=== PATIENT | female | born 1960 | race Caucasian/White ===

== ENCOUNTER → 2020-01-04 14:00 | Outpatient (BNVA) | payer OTHER, SELFPAY | PROVIDERS: Visit Provider Physician Assistant | DX: M75.81 Other shoulder lesions, right shoulder (principal) | CPT/HCPCS: 99212 ==

== ENCOUNTER → 2020-04-10 10:58 | Outpatient (BNVA) | payer OTHER, SELFPAY | PROVIDERS: PCP Internal Medicine; Visit Provider Nurse Practitioner | DX: Z76.89 Persons encountering health services in other specified circumstances (principal) | CPT/HCPCS: Q3014 ==

== ENCOUNTER → 2020-06-14 13:53 | Outpatient (BNVA) | payer OTHER, SELFPAY | PROVIDERS: PCP Internal Medicine; Visit Provider Nurse Practitioner | DX: K21.9 Gastro-esophageal reflux disease without esophagitis (principal); R11.0 Nausea; R06.6 Hiccough; Z80.0 Family history of malignant neoplasm of digestive organs; Z79.899 Other long term (current) drug therapy | CPT/HCPCS: 99212 ==

== ENCOUNTER → 2020-07-02 08:28 | Outpatient (BNVA) | payer OTHER, SELFPAY | PROVIDERS: PCP Internal Medicine; Visit Provider Nurse Practitioner | DX: Z13.89 Encounter for screening for other disorder (principal) | CPT/HCPCS: Q3014 ==

== ENCOUNTER 2020-10-03 08:32 | Outpatient (REF) | payer OTHER, SELFPAY ==
[2020-10-03 08:57] LABS: MANUAL DIFF FLAG NO
[2020-10-03 08:59] LABS: White Blood Count 6.3 X10*3/uL (4.8-10.8)
[2020-10-03 09:00] LABS: Basophils Absolute Auto 0.1 X10*3/uL (0.0-0.2); Basophils Percent Auto 0.8 % (0-2); Eosinophils Absolute Auto 0.4 X10*3/uL (0.0-0.4); Eosinophils Percent Auto 6.2 % (0-4); Hematocrit 35.6 % (37-47); Hemoglobin 11.1 g/dl (12.0-16.0); Imm Gran Abs Auto 0.01 X10*3/uL (0.00-0.03); Imm Gran Pct Auto 0.2 % (0.0-0.4); Lymphocytes Absolute Auto 2.4 X10*3/uL (1.2-4.9); Lymphocytes Percent Auto 38.3 % (20-40); Mean Corpuscular HGB Conc 31.2 g/dl (31.0-35.0); Mean Corpuscular Hemoglobin 25.7 pg (27.0-33.0); Mean Corpuscular Volume 82.4 fL (80-98); Mean Platelet Volume 9.5 fL (9.4-12.3); Monocytes Absolute Auto 0.6 X10*3/uL (0.1-1.2); Monocytes Percent Auto 9.4 % (2-11); Neutrophils Absolute Auto 2.8 X10*3/uL (2.0-8.3); Neutrophils Percent Auto 45.1 % (45-73); Platelet Count 358 X10*3/uL (160-400); Red Blood Count 4.32 X10*6/uL (4.20-5.50); Red Cell Distribution Width 16.4 % (11.0-16.0)
[2020-10-03 09:32] LABS: Alanine Aminotransferase 35 U/L (0-31); Albumin Level 4.1 g/dL (3.5-5.0); Alkaline Phosphatase 87 U/L (39-117); Anion Gap 11 (12-20); Aspartate Amino Transferase 32 U/L (5-31); Bilirubin Total 0.4 mg/dL (0.0-1.0); Blood Urea Nitrogen 16 mg/dL (9-16); Calcium 9.3 mg/dL (8.4-10.2); Carbon Dioxide 28 mmol/L (22-29); Chloride 106 mmol/L (96-108); Estimated Glomerular Filt Rate > 60; Glucose Random 96 mg/dL (60-115); Potassium 4.8 mmol/L (3.3-5.1); Sodium 140 mmol/L (135-145); Total Protein 6.4 g/dL (6.5-8.0)
[2020-10-03 09:54] LABS: Vitamin D 25-OH Total 27.5 ng/mL (>30)
== END 2020-10-03 08:33 | disposition home or self-care (01) ==
LOC: HO.LAB 08:32
PROVIDERS: PCP Internal Medicine; Visit Provider Nurse Practitioner
DX: Z12.11 Encounter for screening for malignant neoplasm of colon (principal); R06.6 Hiccough
CPT/HCPCS: 36415; 80053; 82306; 85025

== ENCOUNTER 2020-10-15 10:24 | Day surgery (SDC) | payer OTHER, SELFPAY ==
--- NOTE | 2020-10-14 10:31 | P.CONAN_ITS ---
Documented by User: Soha Marin NP 10/14/20 10:32 HPI - Anesthesia Eval Consult details Narrative: 59yo F for Colonoscopy PMFSH Active Problems Active Problems: All Active Problems (Updated 06/14/20 @ 14:50 by MIKY Hernandez) Family history of colon cancer (Acute) Colon cancer screening (Acute) Nausea (Acute) Hiccups (Acute) GERD (gastroesophageal reflux disease) (Acute) Rotator cuff tendonitis (Acute) Right shoulder pain (Acute) Past Medical History Medical History GERD (gastroesophageal reflux disease) Rotator cuff tendonitis Family History Family History Father Afib Diabetes Family history of breast cancer Family history of liver cancer Family history of heart disease Pacemaker Mother Blind Family history of breast cancer Family history of liver cancer Sister Afib Brother Afib Maternal Grandmother Stomach cancer Surgical History Surgical History History of esophagogastroduodenoscopy (EGD) History of fusion of cervical spine History of repair of hiatal hernia History of total right knee replacement (~11/29/18) Hx of colonoscopy Social History Social History (Updated 07/02/20 @ 08:31 by Raquel Rosenberg CMA) Household Members: Significant Other Alcohol intake: never Patient Tobacco Use Status: Current everyday Tobacco user Cigarette Packs Per Day: 1 Cigarettes Per Day: 10 Use of substances other than those prescribed or required for medical reasons: Yes Substance Use Type Other:: CBD, THC GUMMIES Substance Use Frequency: Weekly Are you DNR?: No Advance Directives: No Advance Directives Information Provided: Yes Current occupational status: disabled Current occupation: Right Handed Meds Allergies Allergy/AdvReac Type Severity Reaction Status Date / Time gabapentin [GABAPENTIN] Allergy Unknown VOMITING Verified 10/15/20 11:01 BLOOD, nausea and vomiting lamotrigine [From LAMICTAL] AdvReac Intermediate DIFFICULTY Verified 10/15/20 11:01 BREATHING ENVIRONMENTAL Allergy Unknown CONGESTION, Uncoded 07/02/20 08:29 PATTEN, FATIGUE Home Medications Medication Instructions Recorded Confirmed Last Taken Type celecoxib 400 mg capsule (Celebrex) 400 mg PO DAILY 01/04/20 Unknown History estradiol 10 mcg vaginal tablet 10 mcg VAGINAL 2XW 02/17/21 Unknown History fluoxetine 40 mg capsule 40 mg PO DAILY 04/10/20 10/15/20 08:30 History ibuprofen 800 mg tablet 800 mg PO Q8H PRN 04/10/20 Unknown History loratadine 10 mg tablet (Claritin) 10 mg PO DAILY 06/14/20 Unknown History Exam Exam Date and Time: October 14, 2020 1031 Pertinent Lab Results Pertinent Lab Results: Laboratory Tests 10/03/20 10/03/20 08:36 08:36 WBC 6.3 Hgb 11.1 L Hct 35.6 L Plt Count 358 Sodium 140 Potassium 4.8 Chloride 106 Carbon Dioxide 28 BUN 16 Creatinine 0.80 Documented by User: Evans Mulligan MD 10/15/20 11:05 [facility] Past Medical History Medical History GERD (gastroesophageal reflux disease) Rotator cuff tendonitis Family History Family History (Reviewed 07/02/20 @ 08:30 by Raquel Rosenberg [facility]) Father Afib Diabetes Family history of breast cancer Family history of liver cancer Family history of heart disease Pacemaker Mother Blind Family history of breast cancer Family history of liver cancer Sister Afib Brother Afib Maternal Grandmother Stomach cancer Family history of problems with anesthesia: No Surgical History Surgical History History of esophagogastroduodenoscopy (EGD) History of fusion of cervical spine History of repair of hiatal hernia History of total right knee replacement (~11/29/18) Hx of colonoscopy History of Problems with Anesthesia: No Social History Social History (Updated 07/02/20 @ 08:31 by Raquel Rosenberg [facility]) Household Members: Significant Other Alcohol intake: never Patient Tobacco Use Status: Current everyday Tobacco user Cigarette Packs Per Day: 1 Cigarettes Per Day: 10 Use of substances other than those prescribed or required for medical reasons: Yes Substance Use Type Other:: CBD, THC GUMMIES Substance Use Frequency: Weekly Are you DNR?: No Advance Directives: No Advance Directives Information Provided: Yes Current occupational status: disabled Current occupation: Right Handed Meds Allergies Allergy/AdvReac Type Severity Reaction Status Date / Time gabapentin [GABAPENTIN] Allergy Unknown VOMITING Verified 10/15/20 11:01 BLOOD, nausea and vomiting lamotrigine [From LAMICTAL] AdvReac Intermediate DIFFICULTY Verified 10/15/20 11:01 BREATHING ENVIRONMENTAL Allergy Unknown CONGESTION, Uncoded 07/02/20 08:29 PATTEN, FATIGUE Home Medications Medication Instructions Recorded Confirmed Last Taken Type celecoxib 400 mg capsule (Celebrex) 400 mg PO DAILY 01/04/20 Unknown History estradiol 10 mcg vaginal tablet 10 mcg VAGINAL 2XW 04/10/20 Unknown History fluoxetine 40 mg capsule 40 mg PO DAILY 04/10/20 10/15/20 08:30 History ibuprofen 800 mg tablet 800 mg PO Q8H PRN 04/10/20 Unknown History loratadine 10 mg tablet (Claritin) 10 mg PO DAILY 06/14/20 Unknown History Exam Airway Mallampati Class: II TM Dist: >3cm Neck ROM: Full Loose/Missing/Broken Teeth: No Heart: RRR Assessment and Plan Assessment Anesthesia Assessment: Anesthesia Plan Discussed and Chart Reviewed Final Anesthetic Review Family History of Problems with Anesthesia: No History of Problems with Anesthesia: No NPO: Yes ASA Class: III Final Preanesthetic Review: No Changes in Pt Med Stat, Meds/Allgs Chart Reviewed, Consent Obtained/Reviewed and Anes Risks/Benef Reviewed Patient Risk: Intermediate Procedure Risk: Low Anesthetic Plan Anesthetic Plan: MAC: Disposition: Standard PACU
[2020-10-15 10:32] VITALS: BMI 37.4
[2020-10-15 10:52] VITALS: BP 124/86; PULSE 75; RESP 16; TEMP 36.2; O2SAT 95
[2020-10-15] MEDS: Lactated Ringers 1,000 ML 100 ML IVCONT (10:59)
--- NOTE | 2020-10-15 11:04 | MHC.SHP ---
Pre-Procedural Eval Section A Date of Service: 10/15/20 The patient is an INPATIENT: No The History & Physical has been completed within 30 days and I have reviewed it.: No Section B Chief Complaint: Screening Relevant Family History (Specify if Yes): Yes Present Medications: see Short Stay Collaborative assessment Medical History: Significant History (GERD, hiccups) History of Previous Operations: Relevant previous surgery/procedure and date(s) (History of esophagogastroduodenoscopy (EGD) History of fusion of cervical spine History of total right knee replacement (~11/29/18) Hx of colonoscopy) Allergies: Allergies Allergy/AdvReac Type Severity Reaction Status Date / Time gabapentin [GABAPENTIN] Allergy Unknown VOMITING Verified 10/15/20 11:01 BLOOD, nausea and vomiting lamotrigine [From LAMICTAL] AdvReac Intermediate DIFFICULTY Verified 10/15/20 11:01 BREATHING ENVIRONMENTAL Allergy Unknown CONGESTION, Uncoded 07/02/20 08:29 PATTEN, FATIGUE Review of Systems Sugical H&P ROS: Negative: Constitution, Cardiovascular, Respiratory and Gastrointestinal Exam Surgical H&P Exam: Normal: Heart, Normal: Lungs, Normal: Extremities and Normal: Abdomen Plan Diagnosis/Plan: Unchanged I have reviewed the history and physical and performed a pertinent physical examination on my patient. No changes have occurred unless specified.
--- NOTE | 2020-10-15 11:11 | P.BOP_ITS ---
Brief Operative Note Date of Service: 10/15/20 Pre-op diagnosis: Colon cancer screening Post-op diagnosis: other (Colon polyps, diverticulosis) Procedure: COLONOSCOPY TILL CECUM WITH BIOPSIES AND SNARE POLYPECTOMY Consent: Indications for the procedure and potential complications of bleeding, perforation, reaction to medications and missed diagnosis were discussed with the patient and informed consent was obtained. Instrument: Olympus PCF H 190 L variable stiffness pediatric colonoscope Monitoring: Vital signs and clinical assessment, intermittent blood pressure monitoring, continuous EKG monitoring, Pulse oximetry and Carbon Dioxide monitoring were done throughout the procedure. Colon withdrawl time was 13 minutes. Procedure: The patient was placed in the left lateral decubitis position and pre-procedure medications were administered. After a digital rectal examination of the ano-rectum, the video colonoscope was inserted into the rectum and advanced through the colon to the cecum. The colonoscope was slowly withdrawn in a retrograde panoramic fashion and the colon mucosa was carefully examined including a retroflexed view of the rectum. Findings and interventions are described below. Procedure Difficulty: Colon long tortuous was some loop formation. Patient was placed the supine position with the application of LLQ pressure to intubate ascending Findings: Terminal Ileum: Not evaluated Cecum: Normal Ascending Colon: A 6-7 mm sessile polyp removed with cold biopsy Transverse Colon: A 15 mm sessile polyp removed with a hot snare Descending Colon: Moderate diverticulosis Sigmoid Colon: Severe diverticulosis with luminal narrowing Rectum: Normal Ano-rectum: Normal Colon preparation: Excellent Impression and Post Procedure Diagnosis: Colonoscopy Findings: Two small to medium sized polyps removed Moderate to severe diverticulosis seen in the left colon Plan: Await pathology results Patient has an appointment on 10/31/20 in the GI Clinic with Maggie Ogden NP . Repeat Colonoscopy interval based on path results - in 3-5 years if polyps are adenomatous and 10 years if polyps are hyperplastic. Above findings were reviewed with the patient and colon polyps and diverticulosis handouts were given in the discharge area Surgeon: Dale Sims MD Anesthesia: MAC (Sharyn Hardwick CRNA) Was an Director Of Land Acquisition used for this Procedure?: Yes Director Of Land Acquisition: Zuri Huynh Estimated blood loss (mL): 0 Pathology: other (a. transverse colon polyp b. Ascending colon polyp) Condition: stable Disposition: PACU
[2020-10-15 11:52] VITALS: BP 95/69; PULSE 76; RESP 16; TEMP 36.2; O2SAT 98
[2020-10-15 12:07] VITALS: BP 111/77; PULSE 76; RESP 16; TEMP 36.2; O2SAT 98
--- NOTE | 2020-10-15 18:27 | P.OP_ITS ---
Operative Note Operative Note Date of Service: 10/15/20 Narrative: Pre-op diagnosis:?Colon cancer screening Post-op diagnosis:?other (Colon polyps, diverticulosis) Procedure:? COLONOSCOPY TILL CECUM WITH BIOPSIES AND SNARE POLYPECTOMY Consent: Indications for the procedure and potential complications of bleeding, perforation, reaction to medications and missed diagnosis were discussed with the patient and informed consent was obtained. Instrument: Olympus PCF H 190 L variable stiffness pediatric colonoscope Monitoring: Vital signs and clinical assessment, intermittent blood pressure monitoring, continuous EKG monitoring, Pulse oximetry and Carbon Dioxide monitoring were done throughout the procedure. Colon withdrawl time was 13 minutes. Procedure: The patient was placed in the left lateral decubitis position and pre-procedure medications were administered. After a digital rectal examination of the ano-rectum, the video colonoscope was inserted into the rectum and advanced through the colon to the cecum. The colonoscope was slowly withdrawn in a retrograde panoramic fashion and the colon mucosa was carefully examined including a retroflexed view of the rectum. Findings and interventions are described below. Procedure Difficulty:? Colon long tortuous was some loop formation.? Patient was placed the supine position with the application of LLQ pressure to intubate ascending Findings: Terminal Ileum: Not evaluated Cecum:? Normal Ascending Colon:? A 6-7 mm sessile polyp removed with cold biopsy Transverse Colon:? A 15 mm sessile polyp removed with a hot snare Descending Colon:? Moderate diverticulosis Sigmoid Colon:? Severe diverticulosis with luminal narrowing Rectum:? Normal Ano-rectum:? Normal Colon preparation: Excellent ? Impression and Post Procedure Diagnosis: Colonoscopy Findings: Two small to medium sized polyps removed Moderate to severe diverticulosis seen in the left colon Plan: Await pathology results Patient has an appointment on 10/31/20 in the GI Clinic with? Maggie Ogden NP . Repeat Colonoscopy interval based on path results - in 3-5 years if polyps are adenomatous and 10 years if polyps are hyperplastic. Above findings were reviewed with the patient and colon polyps and diverticulosis handouts were given in the discharge area Surgeon:?Dale Sims MD Anesthesia:?TARIQ (Sharyn Hardwick CRNA) Was an Public Health Nutritionist used for this Procedure?:?Yes Public Health Nutritionist:?Zuri Huynh Estimated blood loss (mL):?0 Pathology:?other (a. transverse colon polyp? b. Ascending colon polyp) Condition:?stable Disposition:?PACU
== END 2020-10-15 12:31 ==
LOC: HO.SSS 10:25
PROVIDERS: PCP Internal Medicine; Visit Provider Internal Medicine Gastroenterology
PROC: 0DJD8ZZ Inspection of Lower Intestinal Tract, Via Natural or Artificial Opening Endoscopic (ICD-10-PCS; CPT 45378; principal; 2020-10-15 11:30)
DX: Z12.11 Encounter for screening for malignant neoplasm of colon (principal); D12.2 Benign neoplasm of ascending colon; D12.3 Benign neoplasm of transverse colon; K57.30 Diverticulosis of large intestine without perforation or abscess without bleeding; K21.9 Gastro-esophageal reflux disease without esophagitis; Z79.899 Other long term (current) drug therapy; Z88.8 Allergy status to other drugs, medicaments and biological substances; F17.210 Nicotine dependence, cigarettes, uncomplicated
CPT/HCPCS: 45385; 45380; 88305

== ENCOUNTER → 2020-10-31 09:37 | Outpatient (BNVA) | payer OTHER, SELFPAY | PROVIDERS: PCP Internal Medicine; Visit Provider Nurse Practitioner | DX: Z13.89 Encounter for screening for other disorder (principal) | CPT/HCPCS: Q3014 ==

== ENCOUNTER → 2021-05-01 09:05 | Outpatient (BNVA) | payer OTHER, SELFPAY | PROVIDERS: PCP Internal Medicine; Referring Provider Internal Medicine; Visit Provider Nurse Practitioner | DX: K21.9 Gastro-esophageal reflux disease without esophagitis (principal); R11.0 Nausea; Z79.899 Other long term (current) drug therapy; Z80.0 Family history of malignant neoplasm of digestive organs | CPT/HCPCS: 99212 ==

== ENCOUNTER → 2021-07-31 14:29 | Outpatient (BNVA) | payer OTHER, SELFPAY | PROVIDERS: PCP Internal Medicine; Visit Provider Nurse Practitioner | DX: K21.9 Gastro-esophageal reflux disease without esophagitis (principal); R11.0 Nausea; D64.9 Anemia, unspecified; Z79.899 Other long term (current) drug therapy; Z80.0 Family history of malignant neoplasm of digestive organs | CPT/HCPCS: 99212 ==

== ENCOUNTER 2021-08-07 09:32 | Outpatient (REF) | payer OTHER, SELFPAY ==
[2021-08-07 10:31] LABS: FIT1 NEGATIVE (NEGATIVE)
[2021-08-07 10:32] LABS: FIT Int Ctl YES; FIT2 NEGATIVE (NEGATIVE)
== END 2021-08-07 09:33 | disposition home or self-care (01) ==
LOC: HO.LNP 09:32
PROVIDERS: Visit Provider Nurse Practitioner
DX: D64.9 Anemia, unspecified (principal)
CPT/HCPCS: 82274

== ENCOUNTER → 2021-09-11 08:30 | Outpatient (BNVA) | payer OTHER, SELFPAY | PROVIDERS: PCP Internal Medicine; Visit Provider Nurse Practitioner | DX: D64.9 Anemia, unspecified (principal); K21.9 Gastro-esophageal reflux disease without esophagitis | CPT/HCPCS: 99212 ==

== ENCOUNTER → 2022-08-27 15:46 | Outpatient (BNVA) | payer OTHER, SELFPAY | PROVIDERS: Visit Provider Nurse Practitioner | DX: Z01.818 Encounter for other preprocedural examination (principal); K21.9 Gastro-esophageal reflux disease without esophagitis; R11.0 Nausea; Z80.0 Family history of malignant neoplasm of digestive organs; Z79.899 Other long term (current) drug therapy | CPT/HCPCS: 99212 ==

== ENCOUNTER 2022-09-05 09:11 | Outpatient (REF) | payer OTHER, SELFPAY ==
[2022-09-05 09:22] LABS: MANUAL DIFF FLAG NO
[2022-09-05 09:33] LABS: Basophils Absolute Auto 0.1 X10*3/uL (0.0-0.2); Basophils Percent Auto 0.7 % (0-2); Eosinophils Absolute Auto 0.2 X10*3/uL (0.0-0.4); Eosinophils Percent Auto 3.4 % (0-4); Hematocrit 41.8 % (37.0-47.0); Hemoglobin 13.3 g/dl (12.0-16.0); Imm Gran Abs Auto 0.01 X10*3/uL (0.00-0.03); Imm Gran Pct Auto 0.1 % (0.0-0.4); Lymphocytes Absolute Auto 2.3 X10*3/uL (1.2-4.9); Mean Corpuscular HGB Conc 31.8 g/dl (31.0-35.0); Mean Corpuscular Hemoglobin 29.6 pg (27.0-33.0); Mean Corpuscular Volume 93.1 fL (80.0-98.0); Mean Platelet Volume 9.7 fL (9.4-12.3); Monocytes Absolute Auto 0.6 X10*3/uL (0.1-1.2); Monocytes Percent Auto 8.1 % (2-11); Neutrophils Absolute Auto 3.7 x10*3/uL (2.0-8.3); Neutrophils Percent Auto 53.7 % (45-73); Platelet Count 312 X10*3/uL (160-400); Red Blood Count 4.49 X10*6/uL (4.20-5.50); Red Cell Distribution Width 12.8 % (11.0-16.0); White Blood Count 6.8 X10*3/uL (4.8-10.8)
[2022-09-05 10:17] LABS: Alanine Aminotransferase 23 U/L (0-31); Albumin Level 4.3 g/dL (3.5-5.0); Alkaline Phosphatase 85 U/L (39-117); Anion Gap 12 (12-20); Aspartate Amino Transferase 22 U/L (5-31); Bilirubin Total 0.4 mg/dL (0.0-1.0); Blood Urea Nitrogen 19 mg/dL (9-16); Calcium 9.4 mg/dL (8.4-10.2); Carbon Dioxide 23 mmol/L (22-29); Chloride 107 mmol/L (96-108); Estimated Glomerular Filt Rate > 60; Glucose Random 82 mg/dL (60-115); Potassium 4.1 mmol/L (3.3-5.1); Sodium 138 mmol/L (135-145); Total Protein 6.8 g/dL (6.5-8.0)
== END 2022-09-05 09:12 | disposition home or self-care (01) ==
LOC: HO.LAB 09:11
PROVIDERS: Nurse Practitioner; PCP Internal Medicine; Visit Provider Midwife
DX: Z80.0 Family history of malignant neoplasm of digestive organs (principal)
CPT/HCPCS: 36415; 80053; 85025

== ENCOUNTER 2022-12-02 08:16 | Outpatient (REF) | payer OTHER, SELFPAY | END 2022-12-02 08:17 | disposition home or self-care (01) | LOC: HO.XRAY 08:16 | PROVIDERS: PCP Internal Medicine; Visit Provider Nurse Practitioner | DX: Z13.89 Encounter for screening for other disorder (principal); Z80.0 Family history of malignant neoplasm of digestive organs | CPT/HCPCS: 74220 ==

== ENCOUNTER → 2022-12-02 08:20 | Outpatient (BNV) | payer OTHER, SELFPAY | PROVIDERS: PCP Internal Medicine; Visit Provider Radiology Diagnostic Radiology | DX: Z80.0 Family history of malignant neoplasm of digestive organs (principal) | CPT/HCPCS: 74221 ==

== ENCOUNTER 2023-04-02 09:02 | Day surgery (SDC) | payer OTHER, SELFPAY ==
--- NOTE | 2023-04-01 11:56 | HO.ANESPROP2 ---
HPI - Anesthesia Eval Consult details Narrative: 62yo F for Colonoscopy PMFSH Active Problems Active Problems: All Active Problems (Updated 08/27/22 @ 16:27 by MIKY Hernandez) Pre-op examination (Acute) Anemia (Acute) Right shoulder pain (Acute) Hiccups (Acute) Nausea (Acute) Colon cancer screening (Acute) Family history of colon cancer (Acute) GERD (gastroesophageal reflux disease) (Acute) Past Medical History Medical History GERD (gastroesophageal reflux disease) Rotator cuff tendonitis Family History Family History Father Afib Diabetes Family history of breast cancer Family history of liver cancer Family history of heart disease Pacemaker Mother Blind Family history of breast cancer Family history of liver cancer Sister Afib Brother Afib Maternal Grandmother Stomach cancer Family history of problems with anesthesia: No Surgical History Surgical History History of esophagogastroduodenoscopy (EGD) History of fusion of cervical spine History of repair of hiatal hernia History of total right knee replacement (~11/29/18) Hx of colonoscopy Hx of total knee replacement History of Problems with Anesthesia: No Social History Social History Household Members: Significant Other Alcohol intake: never Patient Tobacco Use Status: Current everyday Tobacco user Cigarette Packs Per Day: 1 Cigarettes Per Day: 10 Current occupational status: disabled Current occupation: Right Handed Meds Allergies Allergy/AdvReac Type Severity Reaction Status Date / Time gabapentin [GABAPENTIN] Allergy Unknown VOMITING Verified 08/27/22 15:55 BLOOD, nausea and vomiting lamotrigine [From LAMICTAL] AdvReac Intermediate DIFFICULTY Verified 08/27/22 15:55 BREATHING ENVIRONMENTAL Allergy Unknown CONGESTION, Uncoded 09/11/21 08:34 PATTEN, FATIGUE Home Medications Medication Instructions Recorded Confirmed Last Taken Type loratadine 10 mg tablet (Claritin) 10 mg PO DAILY 06/14/20 Unknown History azelastine 137 mcg (0.1 %) nasal 2 spray intranasal BID 07/31/21 Unknown History spray aerosol estradiol 10 mcg vaginal tablet 20 mcg vaginal 2XW 09/11/21 Unknown History trazodone 50 mg tablet 25 mg PO 09/11/21 Unknown History baclofen 10 mg tablet 10 mg PO TID 08/27/22 Unknown History methocarbamol 750 mg tablet 750 mg PO TID PRN 08/27/22 Unknown History sertraline 50 mg tablet 50 mg PO DAILY 08/27/22 Unknown History Assessment and Plan Assessment Anesthesia Assessment: Chart Reviewed Final Anesthetic Review Family History of Problems with Anesthesia: No History of Problems with Anesthesia: No
--- NOTE | 2023-04-02 09:32 | HO.ANESPROP2 ---
[facility] Active Problems Active Problems: All Active Problems (Updated 08/27/22 @ 16:27 by MIKY Hernandez) Pre-op examination (Acute) Anemia (Acute) Right shoulder pain (Acute) Hiccups (Acute) Nausea (Acute) Colon cancer screening (Acute) Family history of colon cancer (Acute) GERD (gastroesophageal reflux disease) (Acute) Past Medical History Medical History GERD (gastroesophageal reflux disease) Rotator cuff tendonitis Family History Family History Father Afib Diabetes Family history of breast cancer Family history of liver cancer Family history of heart disease Pacemaker Mother Blind Family history of breast cancer Family history of liver cancer Sister Afib Brother Afib Maternal Grandmother Stomach cancer Family history of problems with anesthesia: No Surgical History Surgical History Hx of total knee replacement History of repair of hiatal hernia History of esophagogastroduodenoscopy (EGD) Hx of colonoscopy History of fusion of cervical spine History of total right knee replacement (~11/29/18) History of Problems with Anesthesia: No Social History Social History Household Members: Significant Other Alcohol intake: never Patient Tobacco Use Status: Current everyday Tobacco user Tobacco use type: Cigarette Cigarette Packs Per Day: 1 Cigarettes Per Day: 20.0 Current occupational status: disabled Current occupation: Right Handed Meds Allergies Allergy/AdvReac Type Severity Reaction Status Date / Time gabapentin [GABAPENTIN] Allergy Unknown VOMITING Verified 08/27/22 15:55 BLOOD, nausea and vomiting lamotrigine [From LAMICTAL] AdvReac Intermediate DIFFICULTY Verified 08/27/22 15:55 BREATHING ENVIRONMENTAL Allergy Unknown CONGESTION, Uncoded 09/11/21 08:34 PATTEN, FATIGUE Active Medications: Current Medications Lactated Ringer's (Lr) 1,000 mls @ 100 mls/hr IVCONT .Q10H [facility] Home Medications Medication Instructions Recorded Confirmed Last Taken Type loratadine 10 mg tablet (Claritin) 10 mg PO DAILY 06/14/20 04/02/23 04/02/23 History azelastine 137 mcg (0.1 %) nasal 2 spray intranasal BID 07/31/21 Unknown History spray aerosol estradiol 10 mcg vaginal tablet 20 mcg vaginal 2XW 09/11/21 Unknown History trazodone 50 mg tablet 25 mg PO 09/11/21 Unknown History baclofen 10 mg tablet 10 mg PO TID 08/27/22 Unknown History methocarbamol 750 mg tablet 750 mg PO TID PRN 08/27/22 Unknown History sertraline 50 mg tablet 50 mg PO DAILY 08/27/22 Unknown History Tylenol 04/02/23 04/02/23 07:30 History Exam Airway Mallampati Class: III TM Dist: >3cm Neck ROM: Full Heart: RRR Lungs: CTA Assessment and Plan Assessment Anesthesia Assessment: Anesthesia Plan Discussed Final Anesthetic Review Family History of Problems with Anesthesia: No History of Problems with Anesthesia: No ASA Class: III Final Preanesthetic Review: Meds/Allgs Chart Reviewed, Consent Obtained/Reviewed and Anes Risks/Benef Reviewed Patient Risk: Low Procedure Risk: Low Anesthetic Plan Anesthetic Plan: MAC: Disposition: Standard PACU
[2023-04-02 09:42] VITALS: BMI 32.7
--- NOTE | 2023-04-02 09:53 | MHC.SHP ---
Pre-Procedural Eval Section A - 24 Hr Update-Section A only Date of Service: 04/02/23 The patient is an INPATIENT: No The patient has been examined within 24 hours of the surgical procedure. The History & Physical has been completed within 30 days and I have reviewed it.: No Section B - Complete if H&P > 30 days Chief Complaint: Surveillance for colon polyps Relevant Family History (Specify if Yes): Yes Relevant Social History: Tobacco Use Present Medications: see Short Stay Collaborative assessment Medical History: Significant History (GERD (gastroesophageal reflux disease) Rotator cuff tendonitis) History of Previous Operations: Relevant previous surgery/procedure and date(s) (History of esophagogastroduodenoscopy (EGD) History of fusion of cervical spine History of repair of hiatal hernia History of total right knee replacement (~11/29/18) Hx of colonoscopy Hx of total knee replacement) Allergies: Allergies Allergy/AdvReac Type Severity Reaction Status Date / Time gabapentin [GABAPENTIN] Allergy Unknown VOMITING Verified 08/27/22 15:55 BLOOD, nausea and vomiting lamotrigine [From LAMICTAL] AdvReac Intermediate DIFFICULTY Verified 08/27/22 15:55 BREATHING ENVIRONMENTAL Allergy Unknown CONGESTION, Uncoded 09/11/21 08:34 PATTEN, FATIGUE Review of Systems Sugical H&P ROS: Negative: Constitution, Cardiovascular, Respiratory and Gastrointestinal Exam Surgical H&P Exam: Normal: Heart, Normal: Lungs, Normal: Extremities and Normal: Abdomen Plan Diagnosis/Plan: Unchanged I have reviewed the history and physical and performed a pertinent physical examination on my patient. No changes have occurred unless specified. Time Spent With Patient Time: Total time managing care of this patient today ____ minutes.
[2023-04-02 09:54] VITALS: BP 109/66; PULSE 68; RESP 16; TEMP 36.8; O2SAT 95
[2023-04-02] MEDS: Lactated Ringers 1,000 ML 100 ML IVCONT (10:04)
--- NOTE | 2023-04-02 10:50 | P.OP_ITS ---
Operative Note Operative Note Date of Service: 04/02/23 Narrative: COLONOSCOPY TILL CECUM Pre-op diagnosis: Surveillance for colon polyps Post-op diagnosis:? Diverticulosis Endoscopist:? Dale Sims MD Anesthesia:?MAC Consent: Indications for the procedure and potential complications of bleeding, perforation, reaction to medications and missed diagnosis were discussed with the patient and informed consent was obtained. Instrument: Olympus PCF H 190 L variable stiffness pediatric colonoscope Monitoring: Vital signs and clinical assessment, intermittent blood pressure monitoring, continuous EKG monitoring, Pulse oximetry and Carbon Dioxide monitoring were done throughout the procedure. Please see anesthesia flowsheet. Colon withdrawl time was 21 minutes. Procedure: The patient was placed in the left lateral decubitis position and pre-procedure medications were administered. After a digital rectal examination of the ano-rectum, the video colonoscope was inserted into the rectum and advanced through the colon to the cecum. The colonoscope was slowly withdrawn in a retrograde panoramic fashion and the colon mucosa was carefully examined including a retroflexed view of the rectum. Findings and interventions are described below. Procedure Difficulty: Colon was tortuous and there was some loop formation. Luminal narrowing in the left colon due to severe diverticulosis which was navigated with some difficulty. LLQ pressure applied to intubate the cecum Findings: Terminal Ileum: Not evaluated Cecum: Normal Ascending Colon: Normal Transverse Colon: Normal Descending Colon: Moderate diverticulosis Sigmoid Colon: Severe diverticulosis with luminal narrowing Rectum: Normal Ano-rectum: Normal Colon preparation: Good after copious irrigation and poor in the cecum due to undigested vegetable matter [place] Bowel Preparation Scale Right colon; 1 in the cecum and 2 in the right colon Transverse colon: 2 Left colon; 2 (0 = Unprepared colon segment with mucosa not seen due to solid stool that cannot be cleared. 1 = Portion of mucosa of the colon segment seen, but other areas of the colon segment not well seen due to staining, residual stool and/or opaque liquid. 2 = Minor amount of residual staining, small fragments of stool and/or opaque liquid, but mucosa of colon segment seen well. 3 = Entire mucosa of colon segment seen well with no residual staining, small fragments of stool or opaque liquid) Impression and Post Procedure Diagnosis: Colonoscopy Findings: No polyps were detected Moderate to severe diverticulosis seen in the left colon Plan: Patient has an appointment on 04/07/23 in the GI Clinic with Maggie Ogden NP. Repeat Colonoscopy interval based on path results - in 3 years due to fair prep in the cecum and a hx of adenomatous colon polyps. Above findings were reviewed with the patient.
[2023-04-02 11:39] VITALS: BP 109/47; PULSE 71; RESP 16; TEMP 36.1; O2SAT 98
[2023-04-02 11:54] VITALS: BP 130/63; PULSE 70; RESP 16; TEMP 36.1; O2SAT 99
--- NOTE | 2023-04-02 13:34 | HO.POSTANES ---
Post Anesthesia Evaluation Post Anesthesia Evaluation Date of Service: 04/02/23 Vital Signs: Vital Signs Temp Pulse Resp BP Pulse Ox O2 Del Method 04/02/23 11:54 97 F 70 16 130/63 99 Room Air 04/02/23 11:39 97 F 71 16 109/47 L 98 Room Air 04/02/23 09:54 98.3 F 68 16 109/66 95 Room Air Anesthesia: Monitored Mental Status: Awake Pain Control: Satisfactory Nausea/Vomiting: None Hydration: Adequate Anesthesia-Related Issues: No Anes. Related Issues
== END 2023-04-02 12:05 | disposition home or self-care (01) ==
PROVIDERS: PCP Internal Medicine; Visit Provider Internal Medicine Gastroenterology
PROC: 0DJD8ZZ Inspection of Lower Intestinal Tract, Via Natural or Artificial Opening Endoscopic (ICD-10-PCS; CPT 45378; principal; 2023-04-02 10:40)
DX: Z12.11 Encounter for screening for malignant neoplasm of colon (principal); K56.2 Volvulus; K57.30 Diverticulosis of large intestine without perforation or abscess without bleeding; Z86.010 Personal history of colon polyps; D64.9 Anemia, unspecified; K21.9 Gastro-esophageal reflux disease without esophagitis; F17.210 Nicotine dependence, cigarettes, uncomplicated; Z79.899 Other long term (current) drug therapy
CPT/HCPCS: G0105; J2704

== ENCOUNTER → 2023-04-02 09:02 | Outpatient (BNV) | payer OTHER, SELFPAY | PROVIDERS: PCP Internal Medicine; Visit Provider Internal Medicine Gastroenterology | DX: Z12.11 Encounter for screening for malignant neoplasm of colon (principal); Z86.010 Personal history of colon polyps; K57.90 Diverticulosis of intestine, part unspecified, without perforation or abscess without bleeding | CPT/HCPCS: G0105 ==

== ENCOUNTER 2023-04-16 08:07 | Outpatient (AMB) | payer OTHER, SELFPAY ==
[2023-04-16 08:22] VITALS: BP 118/57; PULSE 70; BMI 32.3
--- NOTE | 2023-04-16 08:22 | A.OFFVIS_ITS ---
Intake Vital Signs 04/16/23 08:22 Height 5 ft 5 in Weight 194 lb BMI 32.3 BP 118/57 L Blood Pressure Location Lt brachial Position Sitting Pulse 70 Intake Visit Reasons: S/p colon Intake Note: Patient follow up for Colonoscopy results Patient denies any GI issues. Jewel Gauger Required: No Accompanied by: Self / Same As Patient Allergies gabapentin [GABAPENTIN] Allergy (Unknown, Verified 04/16/23 08:21) VOMITING BLOOD, nausea and vomiting lamotrigine [From LAMICTAL] Adverse Reaction (Intermediate, Verified 04/16/23 08:21) DIFFICULTY BREATHING ENVIRONMENTAL Allergy (Unknown, Uncoded 09/11/21 08:34) CONGESTION, PATTEN, FATIGUE HPI S/p colon HPI Details Assessment & Plan (1) GERD (gastroesophageal reflux diseas e): Code(s): K21.9 - Gastro-esophageal reflux disease without esophagitis Plan: She has lost 30 lbs caring for her mother who is legally blind and has dementia - she has been much more physically active and her knee replacements also enabled her to move better. Her nausea and GERD continue to be well controlled on her omeprazole. She wants to get her colonoscopy ordered as she has a hx of sessile polyp from her last scope 3 years ago. She also wants an EGD to ?check on my hiatal hernia. ? I let her know that this is really not a good way to assess a hiatal hernia it is really better with the barium swallow she has she is agreeable to have this done. She denies any cardiac or respiratory problems. There are no prior problems with anesthesia or sedation. NO ID problems She has a FHX of crc in both maternal and paternal grandparents. (2) Nausea: Comment: She continues to do well with her omeprazole, in fact she is having less nausea since the pharmacy switched her from a tablet form to a capsule form.? We will try to make sure that she continues to get this form of dosage since it has helped her a lot. The promethazine just made her way too sleepy even if she cut in half to quarter so will discontinue this medication.? Fortunately, she is having much less nauseous and she went on the capsule formulation. Code(s): R11.0 - Nausea (3) Family history of colon cancer: Comment: 2020 scope 2 polyps 1 sessile and serrat ed repeat in 3 years Code(s): Z80.0 - Family history of malignant neoplasm of digestive organs (4) Pre-op examination: Code(s): Z01.818 - Encounter for other preprocedural examination Orders: Orders Comprehensive Met. Panel Today Z80.0 - Family his tory of malignant neoplasm of digest brittany organs Complete Blood Cou nt Auto Diff Today Z80.0 - Family his tory of malignant neoplasm of digest brittany organs [place] barium swallow Today Z80.0 - Family his tory of malignant neoplasm of digest brittany organs Medications: New peg 3350-electroly bridget [id number] -5.86 gram (Golyt bryanna) until feca l effluent is tanja r; do not exceed a total volume of 2 ,000 mL 240 mL PO Q10M 1 day 4,000 mL 0RF Z12.11 - Encounter for screening for malignant neoplas m of colon Refilled sucralfate 1 g PO BID PRN 30 tabs 3RF for acid reflux LABS: Laboratory Tests 09/05/22 09:19 WBC 6.8 Hgb 13.3 Hct 41.8 Plt Count 312 Estimated GFR > 60 Total Bilirubin 0.4 AST 22 ALT 23 Alkaline Phosphata se 85 BARIUM SWALLOW She missed this appt r/t illness COLONOSCOPY 04/02/23 Findings: Terminal Ileum: Not evaluated Cecum: Normal Ascending Colon: Normal Transverse Colon: Normal Descending Colon: Moderate diverticulosis Sigmoid Colon: Severe diverticulosis with luminal narrowing Rectum: Normal Ano-rectum: Normal Impression and Post Procedure Diagnosis: Colonoscopy Findings: No polyps were detected Moderate to severe diverticulosis seen in the left colon Plan: Patient has an appointment on 04/07/23 in the [facility] with Maggie Ogden NP. Repeat Colonoscopy interval based on path results - in 3 years due to fair prep in the cecum and a hx of adenomatous colon polyps. TODAY'S VISIT She felt that the drink may have been , she did not have problems with the prep but despite taking it all she did not clear. She is agreeable to a 3 year repeat. The procedure was well tolerated. The results were explained and the patient is agreeable to the follow-up interval as stated. The bowel pattern has returned to normal. Education was provided to tell any 1st degree relatives about their findings to be sure that they are screened by age 45. Educated that they will be put on a recall list when it is time for their repeat scope but should they move out of state or away from the hospital they will need to remember along with their primary to repeat the procedure in a timely fashion to avoid any adverse complications. Her GERD continues to be well controlled. She continues to do well with her omeprazole, in fact she is having less nausea since the pharmacy switched her from a tablet form to a capsule form.? She has alot of family problems with her mother and father, her mother has dementia and her father has cardiac problems and had a recent MN and is cur rently hospitalized with severe anemia after a fall. Return office visit in 6 months COUNTS INCLUDE 234 BEDS AT THE [facility] Medical History (Updated 05/04/23 @ 15:42 by MIKY Hernandez) Pre-op examination Colon cancer screening Hiccups GERD (gastroesophageal reflux disease) Rotator cuff tendonitis Surgical History Hx of total knee replacement History of repair of hiatal hernia History of esophagogastroduodenoscopy (EGD) Hx of colonoscopy History of fusion of cervical spine History of total right knee replacement (~11/29/18) Family History Father Afib Diabetes Family history of breast cancer Family history of liver cancer Family history of heart disease Pacemaker Mother Blind Family history of breast cancer Family history of liver cancer Sister Afib Brother Afib Maternal Grandmother Stomach cancer Social History Household Members: Significant Other Alcohol intake: never Patient Tobacco Use Status: Current everyday Tobacco user Tobacco use type: Cigarette Cigarette Packs Per Day: 1 Cigarettes Per Day: 20.0 Current occupational status: disabled Current occupation: Right Handed Review of Systems Const Denies fatigue, Denies fever(s), Denies night sweats, Denies poor appetite and Denies weight loss ENT Reports Normal hearing present, Denies dental pain, Denies dysphagia, Denies hearing loss, Denies mouth pain, Denies odynophagia, Denies throat swelling, Denies tongue swelling and Reports other (Dentition adequate) Card Reports no additional complaints Resp Reports no additional complaints GI Details: Denies abdominal pain, Denies melena, Denies bloating, Denies hematochezia, Denies constipation, Denies GI cramping, Denies dysphagia, Denies excessive f latus, Denies early satiety, Reports heartburn, Denies diarrhea, Denies nausea, Denies odynophagia, Denies vomiting and Denies hematemesis Musc Reports arthralgias Skin/Breast Denies pruritus, Denies lesions, Denies rash and Denies jaundice Neuro Reports Normal hearing present and Denies Abnormal speech present Endo Denies fatigue Aller/Immun Denies throat swelling and Denies tongue swelling Physical Exam Vital Signs: Last Vital Signs Pulse 70 04/16/23 08:22 BP 118/57 L 04/16/23 08:22 BMI result Body Mass Index 32.3 Const General: cooperative, no acute distress, well developed and well groomed Nutritional Appearance: well nourished and obese Orientation/consciousness: oriented to person, oriented to place and oriented to time Limitations: No language barrier HEENT Head: Yes normocephalic and Yes atraumatic Eyes General: appearance normal, both eyes and all related structures Pupils: Equal, round and reactive pupils present Neck Neck: Yes normal visual inspection and Yes no lymphadenopathy Thyroid: Thyroid normal Resp Effort & Inspection: normal respiratory effort and able to speak in complete sentences Auscultation: clear to auscultation bilaterally Cardio Rate: regular rate Rhythm: regular rhythm Heart sounds: Normal, physiologic split S2 sound present Peripheral pulses: radial pulses present and posterior tibial pulses present GI Inspection: No distended, No Abdominal panniculus present and Yes obesity Palpation (GI): Soft to palpation, nontender, no guarding, not rigid and No hepatosplenomegaly present Percussion: Yes normal to percussion Auscultation: normal bowel sounds Rectal Exam - Female: deferred Skin General skin exam: no rashes or lesions noted, turgor normal, skin not dry, no jaundice, No spider nevi and no striae Rashes: no rashes Nails: normal Neuro General: oriented to person, oriented to place and oriented to time Cranial nerves: Yes Equal, round and reactive pupils present and Yes Normal hearing present Speech: No Abnormal speech present Extrem General: Yes normal to inspection, No clubbing, No cyanosis and No edema Psych Appearance: grossly normal and well kempt Mental Status: mental status grossly normal Speech and movement: Normal speech and movement present Affect: normal affect Attitude: cooperative Thought process: Normal thought process present and not confabulating Thought content: Normal thought content present Insight: Fair insight present (Psych) Judgement: Fair judgement present (Psych) Results Reviewed Results Reviewed: Laboratory Tests 09/05/22 09:19 WBC 6.8 Hgb 13.3 Hct 41.8 Plt Count 312 Estimated GFR > 60 Total Bilirubin 0.4 AST 22 ALT 23 Alkaline Phosphatase 85 BARIUM SWALLOW She missed this appt r/t illness COLONOSCOPY 04/02/23 Findings: Terminal Ileum: Not evaluated Cecum: Normal Ascending Colon: Normal Transverse Colon: Normal Descending Colon: Moderate diverticulosis Sigmoid Colon: Severe diverticulosis with luminal narrowing Rectum: Normal Ano-rectum: Normal Impression and Post Procedure Diagnosis: Colonoscopy Findings: No polyps were detected Moderate to severe diverticulosis seen in the left colon Plan: Patient has an appointment on 04/07/23 in the GI Clinic with Maggie Ogdne NP. Repeat Colonoscopy interval based on path results - in 3 years due to fair prep in the cecum and a hx of adenomatous colon polyps. Assessment & Plan Assessment & Plan (1) GERD (gastroesophageal reflux disease): Code(s): K21.9 - Gastro-esophageal reflux disease without esophagitis (2) Family history of colon cancer: Comment: 2023 scope equaled negative study but repeat in 3 years due to insufficient prep; 2020 scope 2 polyps 1 sessile and serrated repeat in 3 years Code(s): Z80.0 - Family history of malignant neoplasm of digestive organs (3) Nausea: Comment: She continues to do well with her omeprazole, in fact she is having less nausea since the pharmacy switched her from a tablet form to a capsule form.? We will try to make sure that she continues to get this form of dosage since it has helped her a lot. The promethazine just made her way too sleepy even if she cut in half to quarter so will discontinue this medication.? Fortunately, she is having much less nauseous and she went on the capsule formulation. Code(s): R11.0 - Nausea (4) Tubular adenoma of colon: Comment: 2023 scope equaled negative study but repeat in 3 years due to insufficient prep; 2020 scope 2 polyps 1 sessile and serrated repeat in 3 years Code(s): D12.6 - Benign neoplasm of colon, unspecified Plan She felt that the drink may have been , she did not have problems with the prep but despite taking it all she did not clear. She is agreeable to a 3 year repeat. The procedure was well tolerated. The results were explained and the patient is agreeable to the follow-up interval as stated. The bowel pattern has returned to normal. Education was provided to tell any 1st degree relatives about their findings to be sure that they are screened by age 45. Educated that they will be put on a recall list when it is time for their repeat scope but should they move out of state or away from the hospital they will need to remember along with their primary to repeat the procedure in a timely fashion to avoid any adverse complications. Her GERD continues to be well controlled. She continues to do well with her omeprazole, in fact she is having less nausea since the pharmacy switched her from a tablet form to a capsule form.? She has alot of family problems with her mother and father, her mother has dementia and her father has cardiac problems and had a recent MN and is currently hospitalized with severe anemia after a fall. Return office visit in 6 months Medications: Refilled omeprazole 40 mg PO BID 180 caps 2RF K21.9 - Gastro-esophageal reflux disease without esophagitis, R11.0 - Nausea sucralfate 1 g PO BID PRN 30 tabs 2RF for acid reflux Coding Level of Care Code Est Pt Level 3 (84507) Diagnoses GERD (gastroesophageal reflux disease) K21.9 Family history of colon cancer Z80.0 Nausea R11.0 Tubular adenoma of colon D12.6
== END 2023-04-16 08:38 | disposition home or self-care (01) ==
PROVIDERS: PCP Internal Medicine; Visit Provider Nurse Practitioner
DX: K21.9 Gastro-esophageal reflux disease without esophagitis (principal); Z80.0 Family history of malignant neoplasm of digestive organs; R11.0 Nausea; D12.6 Benign neoplasm of colon, unspecified
CPT/HCPCS: 99213

== ENCOUNTER → 2023-04-16 08:07 | Outpatient (BNVA) | payer OTHER, SELFPAY | PROVIDERS: PCP Internal Medicine; Visit Provider Nurse Practitioner | DX: K21.9 Gastro-esophageal reflux disease without esophagitis (principal); R11.0 Nausea; D12.6 Benign neoplasm of colon, unspecified; Z80.0 Family history of malignant neoplasm of digestive organs | CPT/HCPCS: 99212 ==